=== PATIENT | female | born 1995 | race Caucasian/White ===

== ENCOUNTER → 2017-11-26 11:49 | Outpatient (CLI) | payer BC, SELFPAY ==
--- NOTE | 2017-11-26 11:57 | US_ITS ---
US OB transvaginal: INDICATION: Early OB with cramping ITS.REASON: ABD PAIN, R/O ECTOPIC ORDERING PHYSICIAN: Maddie Haq PATIENT AGE: 22 years TECHNIQUE: ultrasound transvaginal scanning. COMPARISON: No previous relevant studies. FINDINGS: Single early viable intrauterine gestation...Small pole/embryo was identified. Heartbeat confirmed and documented..Heart rate = 130 BPM CRL = 0.55 cm =6 weeks 3 days. Yolk sac = 0.43 cm. AVERAGE ULTRASOUND AGE = 6 weeks 3 days With this the ultrasound SEBAS is 07/19/2018 vs Gestational Age of 6 weeks 6 days based on LMP 10/09/2017. Cervix long thin and closed. Right ovary measures 3.6 x 2.5 x 2.6 cm At the right ovary there is thick walled cyst area, overall measuring 1.75 cm.. May reflect a collapsed cyst. Minimal trace free fluid about the right ovary about the uterus towards/cul-de-sac likely reflecting such as well. Less likely Corpus luteum cyst right ovary. Scattered small follicles otherwise noted) left ovary Left ovary 3.3 x 2 cm x 1.8 cm. Scattered tiny follicles left ovary. IMPRESSION:...... 1. Early 6 week 3 day viable intrauterine gestation. Heart flicker/Cardiac activity identified and documented 2. Right ovary. Probable collapsed cyst with minimal free fluid about the right ovary and towards uterus
== END ==
PROVIDERS: Family Provider Family Medicine; PCP Family Medicine; Visit Provider Family Medicine
DX: R10.9 Unspecified abdominal pain (principal)
CPT/HCPCS: 76817

== ENCOUNTER → 2017-12-17 12:57 | Outpatient (CLI) | payer BC, SELFPAY ==
--- NOTE | 2017-12-17 12:57 | US_ITS ---
US OB transvaginal HISTORY: ITS.REASON: US OB Dates ORDERING PHYSICIAN: Jonathon Solo MD PATIENT AGE: 22 years COMPARISON: [id number] FINDINGS: An intrauterine gestational sac is present with a pole with a crown-rump length of 0.54cm correlating to gestational age of 9w5d. heart tones are present with an FHR of 167 bpm's. Yolk sac is noted. Adnexa: Unremarkable. IMPRESSION: Live intrauterine gestation at 9 weeks 5 days as described above. Estimated due date by ultrasound is 07/17/2018 with adequate progression compared to the previous exam
== END ==
PROVIDERS: Family Provider Family Medicine; PCP Family Medicine; Visit Provider Nurse Practitioner Obstetrics & Gynecology
DX: O26.841 Uterine size-date discrepancy, first trimester (principal)
CPT/HCPCS: 76817

== ENCOUNTER → 2018-01-04 14:35 | Outpatient (CLI) | payer BC, SELFPAY ==
[2018-01-04 15:31] LABS: Basophils % 0.2 % (0.1-2.0); Eosinophils % 0.2 % (0.1-12.0); Hematocrit 40.8 % (37.0-47.0); Hemoglobin 13.7 g/dL (12.2-16.2); Lymphocytes # 2.5 K/mm3 (0.7-4.5); Lymphocytes % 26.6 K/mm3 (10-50); Mean Corpuscular HGB Conc 33.6 g/dL (31.8-35.4); Mean Corpuscular Hemoglobin 30.5 pg (27.0-31.2); Mean Corpuscular Volume 90.9 fl (81-99); Mean Platelet Volume 9.3 fl (7.4-10.4); Monocytes # 0.5 K/mm3 (0.1-1.0); Monocytes % 5.4 % (1.7-9.3); Neutrophils # 6.3 K/mm3 (1.8-7.8); Neutrophils % 67.6 % (37.0-80.0); Platelet Count 214 K/mm3 (142-424); Red Blood Count 4.49 M/mm3 (4.20-5.40); Red Cell Distribution Width 13.3 % (11.5-17.5); White Blood Count 9.3 K/mm3 (4.5-13.0)
[2018-01-06 07:10] LABS: HIV Screen 4th Generation wRfx Non Reactive (Non Reactive); Rubella Antibodies, IgG 1.78 index (Immune >0.99)
[2018-01-06 08:08] LABS: Hepatitis B Surface Antigen Negative (Negative); Hepatitis C Antibody <0.1 s/co ratio (0.0-0.9)
[2018-01-06 15:42] LABS: Rapid Plasma Reagin Ab Titer Non Reactive (NonRea<1:1)
== END ==
PROVIDERS: Visit Provider Nurse Practitioner Obstetrics & Gynecology
DX: Z34.90 Encounter for supervision of normal pregnancy, unspecified, unspecified trimester (principal)
CPT/HCPCS: 36415; 85025; 86592; 86703; 86762; 86850; 87340; 87380; G0432

== ENCOUNTER → 2018-03-11 09:12 | Outpatient (CLI) | payer BC, SELFPAY ==
--- NOTE | 2018-03-11 09:14 | US_ITS ---
US OB /maternal detail: INDICATION: ITS.REASON: US OB Complete ORDERING PHYSICIAN: Jonathon Solo MD PATIENT AGE: 22 years TECHNIQUE: ultrasound transabdominal scanning. COMPARISON: No previous relevant studies. FINDINGS: Single viable intrauterine gestation. Cephalic position. Placenta: Anterior High placenta grade 1. There is h amount fluid. The cervix appears satisfactory. Closed and measuring 4 cm in length. Complete survey performed and was unremarkable on the submitted images as in PACS. No discrete anomalies identified on survey imaging by technologist. Active fetus. Three-vessel cord with satisfactory umbilical cord insertion. 4- chamber heart noted. Survey of brain & ventricles unremarkable. Face and neck survey unremarkable. Diaphragm and chest views unremarkable. Abdomen: Both kidneys noted and unremarkable. Stomach noted and satisfactory. Spine: Survey of the spine satisfactory with no anomalies identified nor imaged. Both arms and legs noted. Amniotic Fluid: Adequate. Maternal adnexa: No significant findings. Measurements: Average ultrasound age 21w5d. Gestational Age 21w6d. Estimated due date by ultrasound age 0407/17/2018. Estimated weight 421 grams. BPD = 22w1d OFD = 22w1d HC = 21w3d AC = 21w1d FL = 21w6d Growth Percentile= 23 percentile Heart Rate = 146 Cerebellum = 21w1d Humerus = 20w6d HC/AC is 1.20 (1.06-1.25). CI is 78% (70-86%). FL/BPD is 70%. FL/AC is 23% (20-24%). IMPRESSION: There is a single live fetus which is in cephalic presentation with an average ultrasound age of 21 weeks and 5 days. heart tones and body motion noted. No obvious anomalies. All parameters correlate. Placenta is anterior and grade 1. Please see above for detail.
== END ==
PROVIDERS: PCP Family Medicine; Visit Provider Nurse Practitioner Obstetrics & Gynecology
DX: Z36.0 Encounter for antenatal screening for chromosomal anomalies (principal)
CPT/HCPCS: 76811

== ENCOUNTER 2018-03-20 22:57 | Outpatient (CLI) | payer BC, SELFPAY ==
[2018-03-20 23:07] VITALS: BMI 28.8
[2018-03-20 23:26] LABS: Microscopic, Urine URINE MICROSCOPIC (MICROSCOPIC)
[2018-03-20 23:31] LABS: Appearance,Urine SL CLOUDY (Clear); Bilirubin,Urine Negative (Negative); Blood, Urine Negative (Negative); Color,Urine YELLOW (Yellow); Glucose,Urine (UA) Negative (Negative); Ketones,Urine 3+ (Negative); Leukocyte Esterase,Urine TRACE (Negative); Nitrate,Urine Negative (Negative); PH,Urine 6.5 (5.0-8.5); Protein,Urine TRACE (Negative); Specific Gravity, Urine >= 1.030 (1.005-1.030); Urobilinogen,Urine 0.2 EU/dl (0.2)
[2018-03-20 23:33] LABS: Amorphous Sediment,Urine Trace /lpf; Mucus,Urine Trace /lpf; Squamous Epithelial Cell,Urine 20-50 #/hpf (0-5)
[2018-03-20 23:49] VITALS: BP 138/72; PULSE 141; RESP 18; TEMP 36.6; O2SAT 97; BMI 28.8
== END 2018-03-21 01:00 | disposition home or self-care (01) ==
LOC: OBOUT 22:58 → OB 23:00
PROVIDERS: PCP Family Medicine; Visit Provider Nurse Practitioner Obstetrics & Gynecology
DX: O21.9 Vomiting of pregnancy, unspecified (principal); Z3A.23 23 weeks gestation of pregnancy
CPT/HCPCS: 81001; 96360; 96367

== ENCOUNTER → 2018-04-22 09:44 | Outpatient (CLI) | payer BC, SELFPAY ==
[2018-04-22 10:17] LABS: Glucose,Fasting 87 mg/dL (60-105)
[2018-04-22 11:36] LABS: Glucose 1 Hour 107 mg/dL (74-106)
== END ==
PROVIDERS: Visit Provider Nurse Practitioner Obstetrics & Gynecology
DX: Z34.90 Encounter for supervision of normal pregnancy, unspecified, unspecified trimester (principal)
CPT/HCPCS: 36415; 82951

== ENCOUNTER → 2018-06-13 17:46 | Outpatient (CLI) | payer BC, SELFPAY | PROVIDERS: Visit Provider Internal Medicine Cardiovascular Disease | DX: Z34.90 Encounter for supervision of normal pregnancy, unspecified, unspecified trimester (principal) | CPT/HCPCS: 86403 ==

== ENCOUNTER 2018-06-16 23:13 | Outpatient (CLI) | payer BC, SELFPAY ==
[2018-06-16 23:25] VITALS: BMI 29.0
[2018-06-16 23:54] LABS: Microscopic, Urine URINE MICROSCOPIC (MICROSCOPIC)
[2018-06-16 23:55] LABS: Appearance,Urine CLEAR (Clear); Bilirubin,Urine Negative (Negative); Blood, Urine Negative (Negative); Color,Urine YELLOW (Yellow); Glucose,Urine (UA) Negative (Negative); Ketones,Urine Negative (Negative); Leukocyte Esterase,Urine 3+ (Negative); Nitrate,Urine Negative (Negative); Protein,Urine Negative (Negative); Specific Gravity, Urine <= 1.005 (1.005-1.030); Urobilinogen,Urine 0.2 EU/dl (0.2)
[2018-06-17 00:03] LABS: Bacteria,Urine 1+ /lpf; Mucus,Urine 1+ /lpf; WBC,Urine 50-100 #/hpf (0-3)
[2018-06-17 00:04] LABS: Fetal Membrane Rupture (Rapid) Negative (Negative)
[2018-06-17 00:13] VITALS: BP 113/69; PULSE 120; RESP 18; TEMP 36.9; O2SAT 96; BMI 29.0
== END 2018-06-17 00:40 | disposition home or self-care (01) ==
LOC: OBOUT 23:16 → OB 23:18
PROVIDERS: PCP Family Medicine; Visit Provider Obstetrics & Gynecology
DX: O60.03 Preterm labor without delivery, third trimester (principal); Z3A.35 35 weeks gestation of pregnancy
CPT/HCPCS: 59025; 81001; 84112; 87086; 87088; 87186

== ENCOUNTER 2018-07-05 00:14 | Inpatient (IN) ==
[2018-07-05 01:07] LABS: Basophils % 0.3 % (0.1-2.0); Eosinophils % 0.2 % (0.1-12.0); Hematocrit 35.1 % (37.0-47.0); Hemoglobin 12.1 g/dL (12.2-16.2); Lymphocytes # 3.6 K/mm3 (0.7-4.5); Lymphocytes % 33.2 % (10-50); Mean Corpuscular HGB Conc 34.5 g/dL (31.8-35.4); Mean Corpuscular Hemoglobin 29.9 pg (27.0-31.2); Mean Corpuscular Volume 86.5 fl (81-99); Mean Platelet Volume 10.9 fl (7.4-10.4); Monocytes # 0.4 K/mm3 (0.1-1.0); Monocytes % 3.6 % (1.7-9.3); Neutrophils # 6.8 K/mm3 (1.8-7.8); Neutrophils % 62.7 % (37.0-80.0); Platelet Count 216 K/mm3 (142-424); Red Blood Count 4.06 M/mm3 (4.20-5.40); Red Cell Distribution Width 12.4 % (11.5-17.5); White Blood Count 10.9 K/mm3 (4.8-10.8)
--- NOTE | 2018-07-05 05:16 | History & Physical Report ---
OB - H&P: HPI Antepartum - History of Present Illness Chief complaint: SROM History of present illness: 23 yo @ 38 wks GA presented with SROM clear fluid. + intermittent contractions but known advanced dilation 4-5cm during final weeks of care. No vaginal bleeding; normal movement. uncomplicated with care Dr. Solo. Admitted for labor, with plan for epidural pain management. tracing reassuring. Anticipate . [facility] History I have reviewed the patient's past medical history: Yes *Have you ever received a pneumonia vaccine?: No *Have you received a flu vaccine this season?: No Other Surgeries: No: Amputation: No Fractures: No - *Social History Smoking Status: Never smoker Alcohol Intake: never Substance Use Type: denies use *Occupational Status:: unemployed *Travel in the last 8 weeks: None Family Hx:: No significant family history Review of Systems - Review of Systems CONSTITUTIONAL: no fever/chills HEENT: no oral lesions PULMONARY: no shortness of breath or difficulty breathing CV: no racing heart, palpitations or chest pain ABD: no abdominal pain, N/V : + SROM SKIN: no new rash or skin lesions EXT: no edema NEURO: no mental status changes PSYCH: no anxiety/depression Meds Home Medications Medication Instructions Recorded Confirmed Type 1 tab PO DAILY 12/08/17 07/01/18 History vitamin,calcium,rmkxwaul-qlty-aygmo acid tablet Ferrous Sulfate 325 mg PO DAILY 03/21/18 07/01/18 History ondansetron 4 mg disintegrating 4 mg PO Q6H PRN 10 Days #30 tab 05/20/18 07/01/18 Rx tablet nitrofurantoin macrocrystal 100 mg 100 mg PO BID 5 Days #10 cap 06/17/18 07/01/18 Rx capsule Allergies Allergy/AdvReac Type Severity Reaction Status Date / Time Penicillins Allergy Unknown -- Verified 07/01/18 09:14 OB - H&P: Exam - Physical Exam Narrative: CONSTITUTIONAL: no acute distress HEENT: mucous membranes moist PULMONARY: breathing unlabored without audible wheezes CV: no tachycardia or visible JVD; normal LE peripheral pulses ABD: soft, NT/ND, no guarding. Gravid uterus. : cervix 6/70/0; grossly ruptured membranes SKIN: no visible rash or lesions HEME: no lymphadenopathy EXT: 1+ edema LEs NEURO: alert/oriented, no altered mental status PSYCH: appropriate mood and demeanor without visible anxiety/depression NST: Basline: 140 Variability: moderate Accelerations: yes Decelerations: no Impression: Reactive, Category 1 OB - Results - Labs Labs: Short CBC 07/05/18 Range/Units 00:50 WBC 10.9 H (4.8-10.8) K/mm3 Hgb 12.1 L (12.2-16.2) g/dL Hct 35.1 L (37.0-47.0) % Plt Count 216 (142-424) K/mm3 OB - A/P Antepartum (1) Spontaneous rupture of amniotic membranes Current visit: Yes Status: Acute (2) 38 weeks gestation of Current visit: Yes Status: Acute - Additional Plan Additional Information:: Admission for labor Continuous monitoring GBS negative Epidural for pain management Anticipate
--- NOTE | 2018-07-05 05:23 | Procedure Note ---
- Delivery Note Delivery Date:: 07/05/18 Delivery Time:: 04:45 Anesthesia Type: Epidural Was labor medically induced?: No Infant delivered prior to 39 weeks?: Yes Justification for early elective delivery:: Active Labor Infant Gender: Male at 1 minute: 9 at 5 minutes: 9 Delivery Procedure:: Spontaneous vaginal delivery of vigorous liveborn over intact perineum. Apgars: 9 & 9 Delivery uncomplicated; nuchal cord, shoulder dystocia with delivery placed in JOSEP immediately after umbilical cord clamped/cut Placenta spontaneously expressed and examined; noted to be complete/intact. Vulva, vagina, and cervix inspected; no lacerations EBL: 300cc All sponge/needle/instrument counts correct at conclusion of procedure Disposition: Mom/baby stable to recovery in LDRP Placental Delivery Description: Spontaneous
--- NOTE | 2018-07-05 08:23 | Progress Note ---
[facility] Anesthesia Checklist - Patient Identification Patient Identification: Arm Band, Verbal (Name & ) - Structural Data Admitted From: Home Planned Operative Procedure/s: Labor epidural Consent for Planned Operative Procedure(s) Verified: Yes Verified Documents: Surgical Consent, History and Physical - Chart Verification Results Verified: CBC - Additional verifications Patient : Yes Anesthesia Reactions: No - Airway Assessment C-Spine Mobility Assessed: Yes TMJ Mobility Assessed: Yes Dentition: Good Dentition - Neurological Assessment Level of Consciousness: Awake Hx Seizures: No Numbness or tingling in extremities: No - Anesthesia Plan Anesthesia Risk discussed: Yes Anesthesia Plan: Verified ASA Class: II Anesthesia Type: Epidural [facility] History I have reviewed the patient's past medical history: Yes Medical History: Reports:: Gastroesophageal Reflux Disease(GERD) *Have you ever received a pneumonia vaccine?: No *Have you received a flu vaccine this season?: No Other Surgeries: No: Amputation: No Fractures: No - *Social History Smoking Status: Never smoker Alcohol Intake: never Substance Use Type: denies use *Occupational Status:: unemployed *Travel in the last 8 weeks: None Family Hx:: No significant family history
[2018-07-05 21:33] VITALS: BP 129/81
[2018-07-06 06:32] LABS: Hematocrit 31.8 % (37.0-47.0); Hemoglobin 10.6 g/dL (12.2-16.2)
--- NOTE | 2018-07-06 08:52 | Progress Note ---
Internal Medicine - PN: Subj *Date: 07/06/18 *Time: 08:51 Interval history: She is doing well this morning. She is eating and drinking and ambulating. Her lochia is normal. We will plan to send her home tomorrow. Exam Vital signs and Labs for Last 24 Hours: Temp Pulse Resp BP 98.1 F 90 17 129/81 07/05/18 19:55 07/05/18 19:55 07/05/18 19:55 07/05/18 19:55 Laboratory Results - last 24 hr 07/06/18 06:03: Hgb 10.6 L, Hct 31.8 L I & O for Last 24 hours: Intake & Output 07/03/18 07/04/18 07/05/18 07/06/18 11:59 11:59 11:59 11:59 Weight 169 lb - Constitutional no acute distress Assessment and Plan (1) Spontaneous rupture of amniotic membranes Current visit: Yes Status: Acute Category: Medical (2) 38 weeks gestation of Current visit: Yes Status: Acute Category: Medical Code(s): Z3A.38 - 38 weeks gestation of - Assessment and plan all Dx Assessment and Plan for all problems:: She is doing very well. We will plan to send her home tomorrow.
--- NOTE | 2018-07-07 09:03 | Discharge Summary ---
General - General Admission date:: 07/05/18 Discharge date: 07/07/18 HPI HPI: She is a 23-year-old 2 now para 2 at 38 and 2 weeks gestational age. She arrived in active labor. Hospital Course Hospital Course: She progressed to full dilation and delivered spontaneously a liveborn male child at 4:48 AM on the morning of July 05, 2018. The baby weighed 6 pounds 15 ounces and had Apgars of 8 at 1 minute and 9 at 5 minutes. She has done well and has remained afebrile throughout her hospitalization. She is eating and drinking and ambulating. She has a positive blood, she is rubella immune and was group A streptococcus negative. She is breast-feeding. She is discharged home to follow-up with me in approximately 2 weeks time. She will continue with her vitamins and iron. She is taking tbcr-owy-xhdjswd analgesics. She was given the usual instructions with respect to limiting her activity, driving and sexual activity. Rhogam Administration: Not Indicated Objective Vital signs: Temp Pulse Resp BP 98.1 F 90 17 129/81 07/05/18 19:55 07/05/18 19:55 07/05/18 19:55 07/05/18 19:55 no acute distress DS: Diagnosis - Discharge Diagnosis (1) Spontaneous rupture of amniotic membranes Status: Acute (2) 38 weeks gestation of Status: Acute Discharge Plan - Patient Discharge Instructions ACTIVITY: No heavy lifting DIET: continue same diet - Follow up Plan Disposition: Home, Self-Group Home Medications: Home Medications Medication Instructions Recorded Confirmed Type Ferrous Sulfate 325 mg PO DAILY 03/21/18 07/05/18 History ondansetron 4 mg disintegrating 4 mg PO Q6H PRN 10 Days #30 tab 05/20/18 07/05/18 Rx tablet Pnv95/Iron Fum/Folic Acid 1 each PO DAILY 07/05/18 07/05/18 History [ Formula Tablet] Prescriptions/Medication Reconciliation: Continue ondansetron 4 mg disintegrating tablet 4 mg PO Q6H PRN 10 Days #30 tab PRN Reason: nausea and vomiting Ferrous Sulfate 325 mg PO DAILY Pnv95/Iron Fum/Folic Acid [ Formula Tablet] 1 each PO DAILY
== END 2018-07-07 11:15 | disposition home or self-care (01) | DRG 807 ==
LOC: OBOUT 00:14 → OB 00:18
PROVIDERS: ADMIT Obstetrics & Gynecology; ATTEND Nurse Practitioner Obstetrics & Gynecology

== ENCOUNTER → 2019-01-03 12:26 | Outpatient (CLI) | payer BC, SELFPAY ==
--- NOTE | 2019-01-03 12:29 | US_ITS ---
PROCEDURE: US TRANSVAGINAL CLINICAL INDICATION: US T/V- f/u on right ovarian cyst Follow-up right ovarian cyst as seen on previous CT scan not available for comparison. COMPARISON: OBTV US OB transvaginal from 12/17/2017 FINDINGS: The uterus has an unremarkable appearance measuring 8.6 x 3.4 by 4.3 cm with a combined endometrial thickness of 3 mm. The left ovary is 2.4 x 1.6 cm containing small follicles with blood flow noted. The right ovary is 3.7 x 2 cm containing small follicles and 1.5 cm cyst. Blood flow is present. No cul-de-sac fluid apparent. IMPRESSION: 1.5 cm right ovarian cyst with small bilateral ovarian follicles and unremarkable appearing uterus Dictated by: Niall Cortez MD 01/03/2019 20:24 Electronically signed by Niall Cortez MD in [place] 01/03/2019 20:24
== END ==
PROVIDERS: PCP Family Medicine; Visit Provider Nurse Practitioner Obstetrics & Gynecology
DX: N83.201 Unspecified ovarian cyst, right side (principal)
CPT/HCPCS: 76830

== ENCOUNTER → 2019-02-06 09:07 | Outpatient (POV) | payer BC, SELFPAY ==
[2019-02-06 10:48] LABS: Basophils % 0.5 % (0.1-2.0); Eosinophils % 0.5 % (0.1-12.0); Hematocrit 45.3 % (37.0-47.0); Hemoglobin 14.6 g/dL (12.2-16.2); Lymphocytes # 2.1 K/mm3 (0.7-4.5); Lymphocytes % 37.3 % (10-50); Mean Corpuscular HGB Conc 32.2 g/dL (31.8-35.4); Mean Corpuscular Hemoglobin 30.6 pg (27.0-31.2); Mean Corpuscular Volume 94.8 fl (81-99); Mean Platelet Volume 10.2 fl (7.4-10.4); Monocytes # 0.4 K/mm3 (0.1-1.0); Monocytes % 6.9 % (1.7-9.3); Neutrophils # 3.1 K/mm3 (1.8-7.8); Neutrophils % 54.8 % (37.0-80.0); Platelet Count 198 K/mm3 (142-424); Red Blood Count 4.78 M/mm3 (4.20-5.40); Red Cell Distribution Width 14.4 % (11.5-17.5); White Blood Count 5.6 K/mm3 (4.8-10.8)
[2019-02-06 10:58] LABS: Alanine Aminotransferase 22 U/L (12-78); Albumin Level 4.7 gm/dL (3.4-5.0); Albumin/Globulin Ratio 1.4 (1.1-1.8); Alkaline Phosphatase 75 U/L (46-116); Anion Gap 16.1 mEq/L (5-15); Aspartate Amino Transferase 13 U/L (15-37); Bilirubin,Total 0.6 mg/dL (0.2-1.0); Blood Urea Nitrogen 10 mg/dL (7-18); Calcium 9.3 mg/dL (8.5-10.1); Carbon Dioxide 24 mmol/L (21.0-32.0); Chloride 104 mmol/L (98-107); Creatinine,Serum 0.66 mg/dL (0.55-1.02); Estimated Glomerular Filt Rate 113 ml/min (>60); GFR (African American) 137 ML/MIN (>60); Globulin 3.3 gm/dl (1.3-3.2); Glucose 97 mg/dL (74-106); Potassium 4.1 mmoL/L (3.5-5.1); Sodium 140 mmol/L (136-145)
[2019-02-07 19:11] LABS: Deamidated Gliadin Abs, IgA 6 units (0-19); Deamidated Gliadin Abs, IgG 3 units (0-19); Endomysial IgA Antibody Negative (Negative); Tissue Transglutaminase IgA Ab <2 U/mL (0-3); Tissue Transglutaminase IgG Ab <2 U/mL (0-5)
[2019-02-08 12:19] LABS: Reticulin IgA Antibody Negative titer (Neg:<1:2.5); Saccharomyces cerevisiae, IgA <20.0 Units (0.0-24.9); Saccharomyces cerevisiae, IgG 39.9 Units (0.0-24.9)
== END ==
PROVIDERS: PCP Family Medicine; Visit Provider Nurse Practitioner Family
DX: R14.0 Abdominal distension (gaseous) (principal); R19.4 Change in bowel habit; K59.00 Constipation, unspecified; K38.8 Other specified diseases of appendix
CPT/HCPCS: 36415; 80053; 83516; 85025; 86255; 86256; 86671

== ENCOUNTER 2019-11-02 14:43 | Emergency (ER) | payer OTHER, SELFPAY ==
[2019-11-02 15:00] VITALS: BP 142/91; BP 146/91; PULSE 120; PULSE 88; RESP 19; TEMP 36.6; TEMP 36.8; O2SAT 98; BMI 22.6
== END 2019-11-02 15:01 | disposition left against medical advice (07) ==
PROVIDERS: Emergency Provider Nurse Practitioner Family; PCP Family Medicine
DX: Z20.828 Contact with and (suspected) exposure to other viral communicable diseases (principal)
CPT/HCPCS: 99201; U0003

== ENCOUNTER 2020-04-22 18:45 | Emergency (ER) | payer BC, SELFPAY ==
[2020-04-22 18:50] VITALS: BP 158/89; PULSE 107; RESP 20; TEMP 36.9; O2SAT 98; BMI 27.6
[2020-04-22 19:15] VITALS: BP 158/89; PULSE 107; RESP 20; TEMP 36.9; O2SAT 98
--- NOTE | 2020-04-22 19:25 | HMH.EDUTC ---
[facility] [place] Clinical Impression: Close exposure to COVID-19 virus Disposition: Home, Self-Care Condition on Discharge: Good Instructions: Preventing the Spread of Coronavirus Discharge Instructions Additional Instructions: Drink plenty of fluids. Take tylenol for pain or fever. Return if you begin to have difficulty breathing. Follow up with your regular doctor. GO TO THE ER FOR ANY WORSENING SYMPTOMS Prescriptions: Ondansetron [Zofran 4mg ODT] 4 mg PO Q8HP PRN #12 tab.rapdis PRN Reason: Nausea Transmission Status: Received by [id number] Referrals: Maddie Haq [Primary Care Provider] - Time of Disposition: 19:31 Medical Decision Making - Medical Records Medical records reviewed: No: I reviewed the patient's medical records. - Guzman Inquiry Pt receiving controlled substance: No Vital Signs: 04/22/20 18:50 04/22/20 19:15 Temperature 98.5 F 98.5 F Temperature Source Oral Pulse Rate 107 H Pulse Rate [Right Brachial] 107 H Respiratory Rate 20 20 Blood Pressure 158/89 H Blood Pressure [Right Arm] 158/89 H Blood Pressure Mean [Right Arm] 112 Blood Pressure Source [Right Arm] Automatic Cuff Blood Pressure Position [Right Arm] Sitting 02 Sat by Pulse Oximetry 98 Oxygen Delivery Method Room Air Orders (Tests/Meds): ORDERS Category Date Time Status Covid-19 Nasal PCR Sendout P&C Routine Lab 04/22/20 19:00 [place] [facility] [place] - General Stated complaint: covid test Time Seen by Provider: 04/22/20 19:25 Mode of Arrival: Ambulatory Source of Information: Patient Limitations: No Limitations Description of Symptoms (Recalled from Triage Doc. by RN): COVID TEST D/T EXPOSURE. DENIES SYMPTOMS HEENT Symptoms (Recalled from RN notes): No Resp Symptoms (Recalled from RN notes): No Skin Symptoms (Recalled from RN notes): No MS Symptoms (Recalled from RN notes): No Functional Status (Recalled from RN notes): WNL - History of Present Illness Provider Complaint: She has been exposed to covid-19 by both her children having it. She denies any symptoms at this time. - Related Data Home Medications Medication Instructions Recorded Confirmed Iron,Carb/Vit C/Vit B12/Folic 65 mg PO DAILY 03/14/19 11/24/19 [Iron 100 Plus Tablet] Naproxen [Naproxen 500mg tab] 500 mg PO BID 03/14/19 11/24/19 cyanocobalamin (vitamin B-12) IM 11/24/19 11/24/19 1,000 mcg/mL injection solution syringe with needle 3 mL 25 gauge See Rx Instructions .ROUTE 11/24/19 x 1 .MEDSUPPLY #1 each Previous Rx's Medication Instructions Recorded bupropion HCl 150 mg 24 hr tablet, 150 mg PO DAILY #30 tab 02/13/20 extended release hydroxyzine HCl 25 mg tablet 25 mg PO TID #90 tab 02/13/20 Ondansetron [Zofran 4mg ODT] 4 mg PO Q8HP PRN #12 tab.rapdis 04/22/20 Allergies Allergy/AdvReac Type Severity Reaction Status Date / Time Penicillins Allergy Unknown -- Verified 11/24/19 11:02 - Worker's Comp Is this a Worker's Comp case?: No [facility] History - Hepatitis A Screen Drug use history?: No High risk sexual behaviors?: No History of sexually transmitted infection?: No Currently employed?: No Childcare worker?: No Do you have indoor plumbing?: Yes Do you have electricity?: Yes Attestation statement:: This patient has been screened for Hepatitis A risk factors. I have reviewed the patient's past medical history: Yes Medical History: Reports:: Gastroesophageal Reflux Disease(GERD) Denies:: Anxiety, Asthma, Cancer, Depression, Diabetes Mellitus Type 1, Diabetes Mellitus Type 2, Hyperlipidemia, Hypertension, Internal Pacemaker, Migraine, MRSA, Seizures Other Medical History: Denies: Anemia Laterality Cases: Bilateral: Tonsillectomy, Other Other Surgeries: Yes: No Previous Surgery. No: , Pacemaker Amputation: No Fractures: No Comment: wisdom teeth - Social History Smoking Status: Never smoker Alcohol Intake: never Substance Use Type: denies use O
[2020-04-24 10:14] LABS: Covid-19 Nasal PCR Sendout P&C POSITIVE
--- NOTE | 2020-04-24 13:11 | PC.NURSE ---
PT NOTIFIED OF POSITIVE COVID RESULTS
== END 2020-04-22 19:40 | disposition home or self-care (01) ==
PROVIDERS: Emergency Provider Nurse Practitioner Family; PCP Family Medicine
DX: Z20.822 Contact with and (suspected) exposure to COVID-19 (principal); K21.9 Gastro-esophageal reflux disease without esophagitis; Z79.899 Other long term (current) drug therapy; Z88.0 Allergy status to penicillin
CPT/HCPCS: 99202; G0463; U0004

== ENCOUNTER → 2020-11-19 10:48 | Outpatient (CLI) | payer BC, SELFPAY ==
--- NOTE | 2020-11-19 10:49 | US_ITS ---
PROCEDURE: US OB >= 14 WEEKS FETUS CLINICAL INDICATION: for dates Anatomy exam COMPARISON: US OBFEMAT US OB /maternal detail from 03/11/2018 FINDINGS: There is a single live fetus in breech presentation. Cervix is closed measuring 4 cm. Placenta is anterior and lateral and grade 1. Measurements: Average ultrasound age 14weeks 3days. Gestational Age 14weeks 3days Estimated due date by ultrasound age 0205/17/2021. Estimated weight 103g BPD = 13weeks 5days OFD = 14weeks 2days HC = 14weeks AC = 14weeks 6days FL = 14weeks 5days Growth Percentile= forty-one% Heart Rate = 147bpm Cerebellum = Humerus = HC/AC is 1.05 CI is 0.66 FL/BPD is 0.72 FL/AC is 0.19 IMPRESSION: Live IUP in breech presentation with an average ultrasound age of 14 weeks 3 days. Estimated due date is 05/17/2021.. Please see above for details. This DOES NOT constitute an anatomy exam which should be performed at 20 weeks. Dictated by: Niall Cortez MD 11/19/2020 14:33 Niall Cortez MD in [place] 11/19/2020 14:33
== END ==
LOC: RAD 10:49
PROVIDERS: PCP Family Medicine; Visit Provider Nurse Practitioner Obstetrics & Gynecology
DX: Z34.90 Encounter for supervision of normal pregnancy, unspecified, unspecified trimester (principal)
CPT/HCPCS: 76805

== ENCOUNTER → 2020-12-30 09:24 | Outpatient (CLI) | payer BC, SELFPAY ==
--- NOTE | 2020-12-30 09:24 | US_ITS ---
PROCEDURE: US OB /MATERNAL DETAIL CLINICAL INDICATION: US OB Complete-20 wk +Anatomy Scan COMPARISON: US US OB >= 14 WEEKS FETUS from 11/19/2020 FINDINGS: Single viable intrauterine gestation. Cephalic position. Placenta: Anteriorplacenta grade 1. There is average amount fluid. The cervix appears satisfactory. Closed and measuring 4 in length. Complete survey performed and was unremarkable on the submitted images as in PACS. No discrete anomalies identified on survey imaging by technologist. Active fetus. Three-vessel cord with satisfactory umbilical cord insertion. 4- chamber heart noted. Survey of brain & ventricles Unremarkable. Face and neck survey unremarkable. Diaphragm and chest views unremarkable. Abdomen: Both kidneys noted and unremarkable. Stomach noted and satisfactory. Spine: Survey of the spine satisfactory with no anomalies identified nor imaged. Both arms and legs noted. Amniotic Fluid: Adequate. Maternal adnexa: No significant findings. Measurements: Average ultrasound age 20weeks 3days. Gestational Age 20weeks 3days Estimated due date by ultrasound age 0205/16/2021. Estimated weight 340g BPD = 20weeks 6days OFD = 20weeks 3days HC = 19weeks 6days AC = 20weeks 2days FL = 20weeks 2days Growth Percentile= 39Percent% Heart Rate = 142bpm Cerebellum = 20weeks 2days Humerus = 20weeks 3days HC/AC is 1.15 CI is 0.81 FL/BPD is 0.67 FL/AC is 0.22 IMPRESSION: Live IUP in cephalic presentation with an average ultrasound age 20 weeks 3 days. No obvious anomalies. Please see above for detail. Dictated by: Niall Cortez MD 12/30/2020 19:02 Niall Cortez MD in [facility] 12/30/2020 19:02
== END ==
LOC: RAD 09:24
PROVIDERS: PCP Family Medicine; Visit Provider Nurse Practitioner Obstetrics & Gynecology
DX: Z36.0 Encounter for antenatal screening for chromosomal anomalies (principal)
CPT/HCPCS: 76811

== ENCOUNTER → 2021-03-03 11:29 | Outpatient (CLI) | payer BC, SELFPAY ==
[2021-03-03 12:09] LABS: Basophils % 0.3 % (0.1-2.0); Eosinophils % 0.2 % (0.1-12.0); Hematocrit 33.1 % (37.0-47.0); Hemoglobin 11.2 g/dL (12.2-16.2); Lymphocytes # 2.3 K/mm3 (0.7-4.5); Lymphocytes % 20.8 % (10-50); Mean Corpuscular HGB Conc 33.8 g/dL (31.8-35.4); Mean Corpuscular Hemoglobin 31.4 pg (27.0-31.2); Mean Corpuscular Volume 92.9 fl (81-99); Mean Platelet Volume 9.4 fl (7.4-10.4); Monocytes # 0.6 K/mm3 (0.1-1.0); Monocytes % 5.3 % (1.7-9.3); Neutrophils # 8.1 K/mm3 (1.8-7.8); Neutrophils % 73.4 % (37.0-80.0); Platelet Count 296 K/mm3 (142-424); Red Blood Count 3.56 M/mm3 (4.20-5.40)
[2021-03-04 08:44] LABS: HIV Screen 4th Generation wRfx Non Reactive (Non Reactive); Hepatitis B Surface Antigen Negative (Negative); Hepatitis C Antibody <0.1 s/co ratio (0.0-0.9); Rubella Antibodies, IgG 1.56 index (Immune >0.99)
[2021-03-04 11:46] LABS: Rapid Plasma Reagin Ab Titer Non Reactive (NonRea<1:1)
== END ==
PROVIDERS: Visit Provider Nurse Practitioner Obstetrics & Gynecology
DX: Z34.90 Encounter for supervision of normal pregnancy, unspecified, unspecified trimester (principal)
CPT/HCPCS: 36415; 85025; 86592; 86703; 86762; 86850; 87340; 87380; G0432

== ENCOUNTER → 2021-04-11 15:28 | Outpatient (CLI) | payer BC, SELFPAY | PROVIDERS: Visit Provider Nurse Practitioner Obstetrics & Gynecology | DX: Z34.90 Encounter for supervision of normal pregnancy, unspecified, unspecified trimester (principal) | CPT/HCPCS: 86403 ==

== ENCOUNTER 2021-04-16 11:04 | Outpatient (CLI) | payer BC, SELFPAY ==
[2021-04-16 11:13] VITALS: BMI 28.3
[2021-04-16 12:02] VITALS: BP 118/69; PULSE 98; RESP 18; TEMP 36.8; O2SAT 98; BMI 28.1
[2021-04-16 12:02] LABS: Microscopic, Urine URINE MICROSCOPIC (MICROSCOPIC)
[2021-04-16 12:08] LABS: Appearance,Urine CLEAR (Clear); Bilirubin,Urine Negative (Negative); Blood, Urine Negative (Negative); Color,Urine YELLOW (Yellow); Glucose,Urine (UA) Negative (Negative); Ketones,Urine Negative (Negative); Leukocyte Esterase,Urine Negative (Negative); Nitrate,Urine Negative (Negative); PH,Urine 6.5 (5.0-8.5); Protein,Urine Negative (Negative)
[2021-04-16 12:24] LABS: Amphetamine/Metha Screen,Urine Negative ng/ml (<1000)
[2021-04-16 12:25] LABS: Barbiturates Screen,Urine Negative ng/ml (<200); Benzodiazepines Screen,Urine Negative ng/ml (<200)
[2021-04-16 12:26] LABS: Cocaine Screen,Urine Negative ng/ml (<300)
[2021-04-16 12:27] LABS: Cannabinoid Screen,Urine Negative ng/ml (<50); Methadone Screen,Urine Negative ng/ml (<300); Squamous Epithelial Cell,Urine Occasional #/hpf (0-5)
[2021-04-16 12:28] LABS: Opiate Screen,Urine Negative ng/ml (<300)
[2021-04-16 12:29] LABS: Phencyclidine Screen,Urine Negative ng/ml (<25)
== END 2021-04-16 14:15 | disposition home or self-care (01) ==
LOC: OBOUT 11:05 → OB 11:10
PROVIDERS: PCP Family Medicine; Visit Provider Nurse Practitioner Obstetrics & Gynecology
DX: O47.03 False labor before 37 completed weeks of gestation, third trimester (principal); Z3A.35 35 weeks gestation of pregnancy
CPT/HCPCS: 59025; 80305; 81001; 96360; 96372

== ENCOUNTER → 2021-04-17 13:49 | Outpatient (CLI) | payer BC, SELFPAY ==
--- NOTE | 2021-04-17 14:14 | PC.NURSE ---
1400 PT HERE FOR REPEAT CELESTONE INJECTION
== END ==
PROVIDERS: PCP Family Medicine; Visit Provider Nurse Practitioner Obstetrics & Gynecology
DX: O60.03 Preterm labor without delivery, third trimester (principal); Z3A.35 35 weeks gestation of pregnancy
CPT/HCPCS: 96372; G0463

== ENCOUNTER 2021-04-20 10:23 | Inpatient (IN) | payer BC, SELFPAY ==
[2021-04-20 09:42] VITALS: BMI 26.2
[2021-04-20 09:50] VITALS: BP 130/80; PULSE 120; RESP 18; TEMP 37.5; O2SAT 97; BMI 26.2
[2021-04-20 10:02] LABS: Microscopic, Urine URINE MICROSCOPIC (MICROSCOPIC)
[2021-04-20 10:11] LABS: Appearance,Urine CLEAR (Clear); Bilirubin,Urine Negative (Negative); Blood, Urine 1+ (Negative); Color,Urine YELLOW (Yellow); Glucose,Urine (UA) Negative (Negative); Ketones,Urine Negative (Negative); Leukocyte Esterase,Urine Negative (Negative); Nitrate,Urine Negative (Negative); Protein,Urine Negative (Negative); Urobilinogen,Urine 0.2 EU/dl (0.2)
[2021-04-20 10:16] LABS: Fetal Membrane Rupture (Rapid) Positive (Negative)
[2021-04-20 10:19] LABS: Barbiturates Screen,Urine Negative ng/ml (<200)
[2021-04-20 10:20] LABS: Benzodiazepines Screen,Urine Negative ng/ml (<200)
[2021-04-20 10:21] LABS: Amphetamine/Metha Screen,Urine Negative ng/ml (<1000); Cocaine Screen,Urine Negative ng/ml (<300)
[2021-04-20 10:22] LABS: Cannabinoid Screen,Urine Negative ng/ml (<50); Methadone Screen,Urine Negative ng/ml (<300)
[2021-04-20 10:23] LABS: Opiate Screen,Urine Negative ng/ml (<300)
[2021-04-20 10:24] LABS: Phencyclidine Screen,Urine Negative ng/ml (<25); WBC,Urine Occasional #/hpf (0-3)
[2021-04-20 10:27] LABS: Coronavirus 19, PCR Not Detected (NotDetected); Influenza A, PCR Not Detected (NotDetected); Influenza B, PCR Not Detected (NotDetected)
[2021-04-20 10:39] LABS: Basophils # 0.2 K/mm3 (0-0.2); Basophils % 1.4 % (0.1-2.0); Eosinophils % 0.3 % (0.1-12.0); Hematocrit 33.9 % (37.0-47.0); Hemoglobin 11.1 g/dL (12.2-16.2); Lymphocytes # 3.4 K/mm3 (0.7-4.5); Lymphocytes % 25.4 % (10-50); Mean Corpuscular HGB Conc 32.8 g/dL (31.8-35.4); Mean Corpuscular Hemoglobin 30.2 pg (27.0-31.2); Mean Platelet Volume 10.3 fl (7.4-10.4); Monocytes # 0.7 K/mm3 (0.1-1.0); Monocytes % 5.2 % (1.7-9.3); Neutrophils # 9.1 K/mm3 (1.8-7.8); Neutrophils % 67.8 % (37.0-80.0); Platelet Count 267 K/mm3 (142-424); Red Blood Count 3.68 M/mm3 (4.20-5.40); Red Cell Distribution Width 13.4 % (11.5-17.5); White Blood Count 13.5 K/mm3 (4.8-10.8)
--- NOTE | 2021-04-20 10:43 | HMH.HP ---
*Admission Date: 04/20/21 *Chief complaint: Active labor: Spontaneous rupture of membranes at 36-2/7 weeks *History of present illness: This 25-year-old 3, para 2, AB 0 white female experience spontaneous rupture of membranes at home this morning at approximately 08 30. She has been robyn off and on for several days. She also has received steroids recently for lung maturation, as she has been [address] Solo's office. She is 36-2/7 weeks of gestation today. Upon arrival in the labor room, she is actively robyn. Her cervix is completely effaced, 5 to 6 cm dilated, with the presenting vertex at 0 station. Her bag of water is grossly ruptured and AmniSure positive. An internal monitor has been placed. The patient is requesting an epidural and this has been called for. [facility] History Medical History: Reports:: Gastroesophageal Reflux Disease(GERD) Denies:: Anxiety, Asthma, Cancer, Depression, Diabetes Mellitus Type 1, Diabetes Mellitus Type 2, Hyperlipidemia, Hypertension, Internal Pacemaker, Migraine, MRSA, Seizures *Have you ever received a pneumonia vaccine?: No *Have you received a flu vaccine this season?: No Other Medical History: Denies: Anemia Laterality Cases: Bilateral: Tonsillectomy, Other Other Surgeries: Yes: No Previous Surgery. No: , Pacemaker Amputation: No Fractures: No - *Social History Smoking Status: Never smoker Alcohol Intake: never Alcohol Intake Frequency:: other Substance Use Type: denies use *Occupational Status:: employed Housing: house Household Members: spouse *Travel in the last 8 weeks: Inside the [facility] - Psychiatric History Expresses thoughts of harming self/others: None Suicide Plan Description: No Plan Pschychiatric History:: Denies:: Anxiety, Depression Family Hx:: Cancer (unknown type), Diabetes Meds Home Medications Medication Instructions Recorded Confirmed Type cyanocobalamin (vitamin B-12) IM 11/24/19 04/11/21 History 1,000 mcg/mL injection solution syringe with needle 3 mL 25 gauge See Rx Instructions .ROUTE 11/24/19 04/11/21 History x 1 .MEDSUPPLY #1 each prenat.vits,indy,lfw-kddn-pinrd 1 tab PO DAILY 11/12/20 04/11/21 History ferrous sulfate 325 mg (65 mg 325 mg PO DAILY #30 tab 02/25/21 04/11/21 Rx iron) tablet ondansetron 4 mg disintegrating 4 mg PO Q8HP PRN #20 tab 03/03/21 04/11/21 Rx tablet ondansetron HCl 4 mg tablet 4 mg PO tab 03/14/21 04/11/21 History Allergies Allergy/AdvReac Type Severity Reaction Status Date / Time Penicillins Allergy Unknown -- Verified 04/11/21 11:54 Exam Vital signs and Labs for Last 24 Hours: Laboratory Results - last 24 hr 04/20/21 09:40: Membrane Rupture Positive A 04/20/21 09:43: Urine Color Yellow, Urine Appearance Clear, Urine pH 7.0, Ur Specific [place] 1.010, Urine Protein Negative, Urine Glucose (UA) Negative, Urine Ketones Negative, Urine Blood 1+, Urine Nitrate Negative, Urine Bilirubin Negative, Urine Urobilinogen 0.2, Ur Leukocyte Esterase Negative, Urine RBC 5-10, Urine WBC Occasional, Ur Squamous Epith Cells 3-5, Urine Bacteria None 04/20/21 09:43: Urine Opiates Screen Negative, Urine Methadone Screen Negative, Ur Barbituates Screen Negative, Ur Phencyclidine Scrn Negative, Ur Amphetamines Screen Negative, U Benzodiazepines Scrn Negative, Urine Cocaine Screen Negative, U Marijuana (THC) Screen Negative 04/20/21 10:07: WBC 13.5 H, RBC 3.68 L, Hgb 11.1 L, Hct 33.9 L, MCV 92.0, MCH 30.2, MCHC 32.8, RDW 13.4, Plt Count 267, MPV 10.3, Neut % (Auto) 67.8, Lymph % (Auto) 25.4, [place] % (Auto) 5.2, Eos % (Auto) 0.3, Baso % (Auto) 1.4, Neut # (Auto) 9.1 H, Lymph # (Auto) 3.4, [place] # (Auto) 0.7, Eos # (Auto) 0.0, Baso # (Auto) 0.2 I & O for Last 24 hours: Intake & Output 04/17/21 04/18/21 04/19/21 04/20/21 11:59 11:59 11:59 11:59 Weight 152 lb 9 oz - Constitutional no acute distress - *Routine HEENT Exam Head: Present: normocephalic Eye: Present
--- NOTE | 2021-04-20 11:44 | P.PN_ITS ---
[facility] Anesthesia Checklist - Patient Identification Patient Identification: Arm Band - Structural Data Admitted From: Inpatient Planned Operative Procedure/s: labor epidural Consent for Planned Operative Procedure(s) Verified: Yes Verified Documents: Surgical Consent, History and Physical - NPO Status Verified Time NPO: 00:00 - Additional verifications Anesthesia Reactions: No - Airway Assessment C-Spine Mobility Assessed: Yes TMJ Mobility Assessed: Yes Dentition: Good Dentition - Neurological Assessment Level of Consciousness: Awake, Alert - Anesthesia Plan Anesthesia Risk discussed: Yes Anesthesia Plan: Verified ASA Class: II Anesthesia Type: Epidural [facility] History I have reviewed the patient's past medical history: Yes Medical History: Reports:: Gastroesophageal Reflux Disease(GERD) Denies:: Anxiety, Asthma, Cancer, Depression, Diabetes Mellitus Type 1, Diabetes Mellitus Type 2, Hyperlipidemia, Hypertension, Internal Pacemaker, Migraine, MRSA, Seizures *Have you ever received a pneumonia vaccine?: No *Have you received a flu vaccine this season?: No Other Medical History: Denies: Anemia Anesthesia experience/problems:: nac Laterality Cases: Bilateral: Tonsillectomy, Other Other Surgeries: Yes: No Previous Surgery. No: , Pacemaker Amputation: No Fractures: No - *Social History Smoking Status: Never smoker Alcohol Intake: never Alcohol Intake Frequency:: other Substance Use Type: denies use *Occupational Status:: employed Housing: house Household Members: spouse *Travel in the last 8 weeks: Inside the [place] - Psychiatric History Expresses thoughts of harming self/others: None Suicide Plan Description: No Plan Pschychiatric History:: Denies:: Anxiety, Depression Family Hx:: Cancer (unknown type), Diabetes
--- NOTE | 2021-04-20 13:50 | HMH.PROBDLV ---
Events: Labor < 37 Weeks Intrapartal events: None Induction method: none Delivery augmentation: pitocin Route of delivery: Episiotomy description: None Laceration description: None Estimated blood loss (mL): 350 Anesthesia type: Epidural Disposition: floor Complications: none Narrative: This 25-year-old 3, now para 3, Ab0 white female was admitted at 36-2/7 weeks with spontaneous rupture of membranes at home at approximately 08 30 today. Been noted to be [address] Solo's office and identified is at risk for delivery. Therefore, she would a course of steroids for lung maturity this past week. Upon arrival to labor and delivery she was robyn irregularly and was 5 to 6 cm dilated with obvious rupture of membranes and clear fluid. The cervix was completely effaced and the presenting vertex was at 0 station. She underwent a labor epidural, which worked well, and was augmented with intravenous Pitocin. She went steadily to completion and delivered spontaneously, without an episiotomy, at 1335. There was no nuchal cord. The baby's nasal and oropharynx obstruction, and the baby cried spontaneously on the perineum, as it was delivered. The cord was clamped and cut, 3 vessels were noted to be within the cord, and cord blood was obtained. The baby was handed into the arms of the attending RN, and evaluated by slip filler Dr. Asencio, who assigned Apgars of 8 at 1 minute and 8 at 5 minutes to this male infant (weight in length pending). The placenta delivered spontaneously, intact. Total time in labor was 5 hours 7 minutes. The uterus was inspected and found to be clean, and was involuting well, with IV Pitocin running. There were no lacerations. The rectovaginal septum was intact at the close of the procedure. The patient tolerated the procedure well, and was recovered in excellent condition. Estimated blood loss was 350 cc. The patient's blood type is Rh+ and rubella titer immune. She plans to breast-feed.
--- NOTE | 2021-04-20 14:43 | HMH.PHAINT ---
MEDICATION RECONCILIATION COMPLETED ON PATIENT USING EXTERNAL FILL HISTORY FROM PHARMACY. -YAKELIN CORREIA, PHYLLISD
[2021-04-20 19:50] VITALS: BP 132/74; PULSE 85; RESP 18; TEMP 36.5; O2SAT 96
[2021-04-21 04:22] VITALS: BP 124/73; PULSE 75; RESP 17; TEMP 36.7; O2SAT 97
[2021-04-21 07:41] LABS: Hematocrit 33.6 % (37.0-47.0); Hemoglobin 10.9 g/dL (12.2-16.2)
[2021-04-21 08:56] VITALS: BP 119/75; PULSE 110; RESP 17; TEMP 36.7; O2SAT 95
--- NOTE | 2021-04-21 11:22 | HMH.ACPN2 ---
Internal Medicine - PN: Subj *Date: 04/21/21 *Time: 11:22 Interval history: She continues to do well. She is eating and drinking and ambulating. Her lochia is normal. She is breast-feeding. Exam Vital signs and Labs for Last 24 Hours: Temp Pulse Resp BP Pulse Ox 98.0 F 110 H 17 119/75 95 04/21/21 08:56 04/21/21 08:56 04/21/21 08:56 04/21/21 08:56 04/21/21 08:56 Laboratory Results - last 24 hr 04/20/21 10:07: Blood Type A Positive, Antibody Screen Negative 04/21/21 07:15: Hgb 10.9 L, Hct 33.6 L I & O for Last 24 hours: Intake & Output 04/18/21 04/19/21 04/20/21 04/21/21 11:59 11:59 11:59 11:59 Output Total 400 / 400 Balance -400 / -400 Weight 152 lb 14.4 oz - Constitutional no acute distress - *Routine HEENT Exam Head: Present: normocephalic Eye: Present: EOMI, PERRL ENT: Present: mucous membranes moist Assessment and Plan (1) Normal delivery Status: Acute Category: Medical Code(s): O80 - Encounter for full-term uncomplicated delivery (2) premature rupture of membranes (PPROM) delivered, current hospitalization Status: Acute Category: Medical Code(s): O42.919 - premature rupture of membranes, unspecified as to length of time between rupture and onset of labor, unspecified trimester - Assessment and plan all Dx Assessment and Plan for all problems:: She is doing well. She is breast-feeding. Baby seems to be doing well. We will see how she does over the next 24 hours. If she is doing well and if the baby is doing well we will plan to send her home tomorrow.
[2021-04-21 21:52] VITALS: BP 116/77; PULSE 109; RESP 18; TEMP 36.8; O2SAT 97
[2021-04-22 03:54] VITALS: BP 107/75; PULSE 94; RESP 17; TEMP 36.8; O2SAT 99
--- NOTE | 2021-04-22 08:42 | ECG_ITS ---
APPROVED REPORT Exam: Resting ECG HR:147 bpm ECG Measurements Heart Rate 147 AXES MI 118 P 52 QRSd 74 QRS 35 QT 253 T 12 QTc 337 Conclusion SINUS TACHYCARDIA WITH SHORT MI INTERVAL, POSSIBLE ATRIAL FLUTTER MINIMAL ST DEPRESSION [0.025+ mV ST DEPRESSION] ABNORMAL RHYTHM ECG UNCONFIRMED REPORT Electronically signed by : Dao Asencio MD 04/22/2021 12:11:23
--- NOTE | 2021-04-22 12:36 | CA_ITS ---
APPROVED REPORT EXAM: Comprehensive 2D, Doppler, and color-flow Echocardiogram Director Clinical Research: China Cerna, RT(R) Ht: 5 ft 4 in Wt: 162lbs BSA: 1.79 BP: 107/75 mmHg Indications: tachycardia post x 48 hours. Patient had vaginal delivery 04/20/21. She is tachycardic throughout echo exam. She denies CP or SOB. 2D Dimensions LVOT 1.89 cm (M/F) 1.5-2.5 LA Volume 20.30 mL LA Volume Index 11.34 mL/m2 (M/F) 16-34 M-Mode Dimensions RVDd 1.69 cm (0.9-2.6) LA Diam 2.24 cm (1.9-4.0) LVDd 4.01 cm (3.5-5.7) Ao Diam 2.30 cm (2.0-3.7) LVDs 3.17 cm (3.5-5.7) IVSd 0.67 cm (0.6-1.1) PWd 0.81 cm (0.6-1.1) EF (Teich) 43.20% FS 20.90% EDV (Teich) 70.40 mL ESV (Teich) 40.00 mL LV Diastology E Decel Time 80.00 (160-240 msec) E/A Ratio 1.6 MED E' 6.20 (< 7 cm/sec) E'/MED E' Ratio 19.50 (>14) LAT E' 6.70 (<10 cm/sec) E/LAT E' Ratio 18.04 (>14) Mitral Valve MV E Max Abraham. 121.00 (40-130 cm/s) MV A Velocity 77.00 (40-130 cm/s) E/A Ratio 1.57 MV Decel. Time 80.00 (160-240 ms) MV PHT 23.00 ms Tricuspid Valve TR P. Velocity 227.00 cm/s RAP Estimate 10.00 mmHg RVSP 30.50 mmHg Left Ventricle Left atrium is normal size, left ventricle is normal size, there is hyperdynamic left ventricular systolic function, visually estimated ejection fraction 55% with no regional wall motion abnormality. Diastolic parameters are within normal range. Right Ventricle Right atrium and right ventricle are normal size and contractility. Aortic Valve Aortic valve is grossly normal. There is no aortic stenosis or aortic insufficiency. Mitral Valve Mitral valve grossly normal, there is trace mitral regurgitation. Tricuspid Valve Tricuspid valve grossly normal, there is trace tricuspid regurgitation. Pulmonic Valve Pulmonic valve is grossly normal. Great Vessels Aortic root is normal size. Inferior vena cava is normal size with normal inspiratory collapse. Pericardium No significant pericardial effusion noted. Conclusion 1. Normal left ventricular size preserved left ventricular systolic function, visually estimated ejection fraction 55% with no regional wall motion abnormality, diastolic parameters are within normal range. 2. Trace mitral and tricuspid regurgitation. 3. No significant pericardial effusion. 4. Inferior vena cava is normal size with normal inspiratory collapse. Electronically signed by : Weston Andersen MD 04/22/2021 20:07:53
--- NOTE | 2021-04-22 12:37 | HMH.CNCARD ---
History of Present Illness Consult date: 04/22/21 Requesting physician: Jonathon Solo Chief complaint: tachycardia History of present illness: This is a 25-year-old white female who came into the hospital and had a vaginal delivery on April 20, 2021. This morning the patient was found to be tachycardic with a heart rate in the 140s. Her heart rate remained elevated through most of the morning. When she stands up her heart rate has been as high as 180 by pulse oximetry monitors. While at rest currently her heart rate is around 115 bpm. She denies any chest pain or pressure. She denies any shortness of breath or edema. She denies any palpitations or racing of the heart. She denies any fever, chills, nausea, vomiting, diarrhea, PND or orthopnea. [facility] History I have reviewed the patient's past medical history: Yes Medical History: Reports:: Gastroesophageal Reflux Disease(GERD) Denies:: Anxiety, Asthma, Cancer, Depression, Diabetes Mellitus Type 1, Diabetes Mellitus Type 2, Hyperlipidemia, Hypertension, Internal Pacemaker, Migraine, MRSA, Seizures *Have you ever received a pneumonia vaccine?: No *Have you received a flu vaccine this season?: No Other Medical History: Denies: Anemia Anesthesia experience/problems:: nac Laterality Cases: Bilateral: Tonsillectomy, Other Other Surgeries: Yes: No Previous Surgery. No: , Pacemaker Amputation: No Fractures: No - *Social History Smoking Status: Never smoker Alcohol Intake: never Alcohol Intake Frequency:: other Substance Use Type: denies use *Occupational Status:: employed Housing: house Household Members: spouse *Travel in the last 8 weeks: Inside the [facility] - Psychiatric History Expresses thoughts of harming self/others: None Suicide Plan Description: No Plan Pschychiatric History:: Denies:: Anxiety, Depression Family Hx:: Cancer (unknown type), Diabetes, Other (MVP in mother and father, and paternal grandmother) Para: 2 Meds Home Medications Medication Instructions Recorded Confirmed Type cyanocobalamin (vitamin B-12) 1,000 mcg IM QOW 11/24/19 04/20/21 History 1,000 mcg/mL injection solution prenat.vits,indy,aur-bini-rncyy 1 tab PO DAILY 11/12/20 04/20/21 History ondansetron HCl 4 mg tablet 4 mg PO TIDP PRN tab 03/14/21 04/20/21 History Ferrous Sulfate 325 mg PO DAILY 04/20/21 04/20/21 History Allergies Allergy/AdvReac Type Severity Reaction Status Date / Time Penicillins Allergy Unknown -- Verified 04/11/21 11:54 Exam Vital signs and Labs for Last 24 Hours: Temp Pulse Resp BP Pulse Ox 98.2 F 94 H 17 107/75 L 99 04/22/21 03:54 04/22/21 03:54 04/22/21 03:54 04/22/21 03:54 04/22/21 03:54 I & O for Last 24 hours: Intake & Output 04/19/21 04/20/21 04/21/21 04/22/21 23:59 23:59 23:59 23:59 Output Total 400 / 400 Balance -400 / -400 Weight 152 lb 14.4 oz Narrative: EKG is sinus tachycardia with a rate of 147 - Constitutional no acute distress, average body habitus - *Routine HEENT Exam Head: Present: normocephalic, atraumatic Eye: Present: EOMI, PERRL ENT: Present: mucous membranes moist - *Routine Neck Exam Present: supple, full ROM, normal carotid upstroke. Absent: JVD, carotid bruit, lymphadenopathy - *Routine Respiratory Exam Present: CTA bilaterally - *Routine Cardiovascular Exam Present: RRR - *Routine Abdominal Exam Present: soft, normoactive bowel sounds. Absent: tenderness, distended - *Routine Extremities Exam Present: full ROM, pulses intact, normal capillary refill. Absent: cyanosis, clubbing, edema - *Routine Skin Exam Present: intact, warm. Absent: erythema, rash - *Routine Neurological Exam Present: alert, oriented X3, CN II-XII intact. Absent: sensory deficit, motor deficit - Routine Psychiatric Exam Present: normal affect, normal thought process Review of Systems - Review of Systems Review of systems:: pertinent systems reviewed and negative unless document
[2021-04-22 13:03] LABS: Basophils # 0.2 K/mm3 (0-0.2); Basophils % 1.2 % (0.1-2.0); Eosinophils % 0.3 % (0.1-12.0); Hematocrit 38.5 % (37.0-47.0); Hemoglobin 12.2 g/dL (12.2-16.2); Lymphocytes # 1.4 K/mm3 (0.7-4.5); Lymphocytes % 10.7 % (10-50); Mean Corpuscular HGB Conc 31.6 g/dL (31.8-35.4); Mean Corpuscular Hemoglobin 29.5 pg (27.0-31.2); Mean Corpuscular Volume 93.3 fl (81-99); Monocytes # 0.7 K/mm3 (0.1-1.0); Monocytes % 5.1 % (1.7-9.3); Neutrophils # 10.8 K/mm3 (1.8-7.8); Neutrophils % 82.7 % (37.0-80.0); Platelet Count 285 K/mm3 (142-424); Red Blood Count 4.12 M/mm3 (4.20-5.40); Red Cell Distribution Width 13.3 % (11.5-17.5)
[2021-04-22 13:43] LABS: Alanine Aminotransferase 207 U/L (12-78); Albumin Level 4.1 g/dl (3.5-5.0); Alkaline Phosphatase 174 U/L (38-126); Anion Gap 12.5 mEq/L (5-15); Aspartate Amino Transferase 94 U/L (14-36); Bilirubin,Direct 0.1 mg/dl (0.0-0.4); Bilirubin,Indirect 0.3 mg/dL (0.0-0.9); Bilirubin,Total 0.4 mg/dl (0.2-1.3); Bilirubin,Unconjugated 0.3 mg/dL (0.0-1.1); Blood Urea Nitrogen 6 mg/dl (7-17); Carbon Dioxide 24 mmol/L (22.0-30.0); Chloride 103 mmol/L (98-107); Creatinine Clearance Estimated 192 mL/min (50-200); Estimated Glomerular Filt Rate 153 ml/min (>60); GFR (African American) 185 ML/MIN (>60); Glucose 98 mg/dl (74-100); Potassium 3.5 mmoL/L (3.5-5.1); Sodium 136 mmol/L (136-145); Total Protein,Serum 7.6 g/dl (6.3-8.2)
[2021-04-22 14:14] LABS: Thyroid Stimulating Hormone 1.36 uIU/mL (0.465-4.68)
[2021-04-22 14:41] LABS: Free T4 (Free Thyroxine) 1.02 ng/dl (0.78-2.19)
[2021-04-22 20:00] VITALS: PULSE 140
[2021-04-22 20:15] VITALS: BP 122/76; PULSE 146; RESP 20; TEMP 36.8; O2SAT 98
--- NOTE | 2021-04-22 21:32 | PC.NURSE ---
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
[2021-04-23] VITALS: PULSE 120
[2021-04-23 04:00] VITALS: PULSE 110
[2021-04-23 08:00] VITALS: BP 118/79; PULSE 108; RESP 18; TEMP 36.5; O2SAT 99
--- NOTE | 2021-04-23 10:36 | HMH.PNCARD ---
Subjective Date: 04/23/21 Time: 10:00 Interval history: This is a 25 and white female who came into the hospital and had a vaginal delivery on April 20, 2021. Cardiology has been consulted because she was tachycardic with heart rate in the 140s. At times when she was standing up her heart rate as high as 180 by pulse oximetry. She has been on psychologist private practice and she has had tachycardia overnight. The patient denies any symptoms. She denies racing of the heart or feeling her heart beating fast. She denies chest pain or pressure. She denies shortness of breath or edema. She denies any fever, chills, nausea, vomiting, diarrhea, PND or orthopnea. Exam Vital signs and Labs for Last 24 Hours: Temp Pulse Resp BP Pulse Ox 97.7 F 108 H 18 118/79 99 04/23/21 08:00 04/23/21 08:00 04/23/21 08:00 04/23/21 08:00 04/23/21 08:00 Laboratory Results - last 24 hr 04/22/21 12:49: WBC 13.0 H, RBC 4.12 L, Hgb 12.2, Hct 38.5, MCV 93.3, MCH 29.5, MCHC 31.6 L, RDW 13.3, Plt Count 285, MPV 10.0, Neut % (Auto) 82.7 H, Lymph % (Auto) 10.7, Garden % (Auto) 5.1, Eos % (Auto) 0.3, Baso % (Auto) 1.2, Neut # (Auto) 10.8 H, Lymph # (Auto) 1.4, Garden # (Auto) 0.7, Eos # (Auto) 0.0, Baso # (Auto) 0.2 04/22/21 12:49: Sodium 136, Potassium 3.5, Chloride 103, Carbon Dioxide 24, Anion Gap 12.5, BUN 6 L, Creatinine 0.50 L, Estimated Creat Clear 192, Estimated GFR 153, Est GFR ( Amer) 185, Glucose 98, Calcium 10.0, Total Bilirubin 0.4, Direct Bilirubin 0.1, Conjugated Bilirubin 0.0, Indirect Bilirubin 0.3, Unconjugated Bilirubin 0.3, AST 94 H, ALT 207 H, Alkaline Phosphatase 174 H, Total Protein 7.6, Albumin 4.1, TSH 1.36 04/22/21 12:49: Free T4 1.02 I & O for Last 24 hours: Intake & Output 04/20/21 04/21/21 04/22/21 04/23/21 23:59 23:59 23:59 23:59 Output Total 400 / 400 Balance -400 / -400 Weight 152 lb 14.4 oz Narrative: Monitor strip shows sinus rhythm with a rate of 108. Echo shows: 1. Normal left ventricular size preserved left ventricular systolic function, visually estimated ejection fraction 55% with no regional wall motion abnormality, diastolic parameters are within normal range. 2. Trace mitral and tricuspid regurgitation. 3. No significant pericardial effusion. 4. Inferior vena cava is normal size with normal inspiratory collapse. - Constitutional no acute distress, average body habitus - *Routine HEENT Exam Head: Present: normocephalic, atraumatic Eye: Present: EOMI, PERRL ENT: Present: mucous membranes moist - *Routine Neck Exam Present: supple, full ROM, normal carotid upstroke. Absent: JVD, carotid bruit, lymphadenopathy - *Routine Respiratory Exam Present: CTA bilaterally - *Routine Cardiovascular Exam Present: RRR, Normal S1, Normal S2. Absent: murmur - *Routine Abdominal Exam Present: soft, normoactive bowel sounds. Absent: tenderness, distended - *Routine Extremities Exam Present: full ROM, pulses intact, normal capillary refill. Absent: cyanosis, clubbing, edema - *Routine Skin Exam Present: intact, warm. Absent: erythema, rash - *Routine Neurological Exam Present: alert, oriented X3, CN II-XII intact. Absent: sensory deficit, motor deficit Progress Note: A&P (1) Sinus tachycardia Status: Acute (2) Normal delivery Status: Acute (3) premature rupture of membranes (PPROM) delivered, current hospitalization Status: Acute Assessment and Plan for All Diagnoses:: Plan: 1. The patient was admitted and had a vaginal delivery in April 20, 2021. Following her vaginal delivery the patient has had some sinus tachycardia. She remains a little bit tachycardic this morning with a heart rate around 108. She remains asymptomatic. 2. Her echocardiogram showed a normal ejection fraction and no significant valve disease. 3. Her blood pressures well controlled. 4. Her LDL goal is less than 100. 5. Her liver enzymes were slightly elevated. Will repeat thi
[2021-04-23 12:00] VITALS: BP 110/79; PULSE 107; RESP 18; TEMP 36.6; O2SAT 98
--- NOTE | 2021-04-23 13:58 | HMH.OBDCSM ---
General - General Admission date:: 04/20/21 Discharge date: 04/23/21 HPI - History of Present Illness History of present illness: She is a 25-year-old 3 para 2 who came in with ruptured membranes at 36 weeks. Hospital Course Hospital Course: She came in with ruptured membranes and was found to be 5 to 6 cm dilated. She was 36 weeks gestational age. She subsequently progressed to full dilation and delivered spontaneously a liveborn male child at 1:35 PM in the afternoon of April 20, 2021. She initially did well but it was noted that she had tachycardia. Her heart rate was in the 140s and when she stood up went into the 180s. She was seen by cardiology and was monitored for 24 hours. She had an echocardiogram that was essentially normal with some mild TR and MR regurgitation. Her heart rates have settled into the 100 210 range. She will be discharged home to follow-up with me in 2 weeks time. She will continue to follow with cardiology. She will continue with her vitamins and iron. She was given the usual instructions with respect to limiting her activity, driving and sexual activity. She has a positive blood, she is rubella immune and was group B streptococcus positive. She did receive IV antibiotics while in labor. She has remained afebrile with her hospitalization. Her condition on discharge is stable and improved. Rhogam Administration: Not Indicated Objective Vital signs: Temp Pulse Resp BP Pulse Ox 97.9 F 107 H 18 110/79 98 04/23/21 12:00 04/23/21 12:00 04/23/21 12:00 04/23/21 12:00 04/23/21 12:00 no acute distress - *Routine HEENT Exam Head: Present: normocephalic Eye: Present: EOMI, PERRL ENT: Present: mucous membranes moist Results Labs on day of discharge: Labs from last 24 hours 04/22/21 04/22/21 12:49 12:49 TSH 1.36 Free T4 1.02 DS: Diagnosis - Discharge Diagnosis (1) Sinus tachycardia Status: Acute (2) Normal delivery Status: Acute (3) premature rupture of membranes (PPROM) delivered, current hospitalization Status: Acute Discharge Plan - Patient Discharge Instructions ACTIVITY: No heavy lifting DIET: continue same diet Additional Instructions: No heavy lifting/strenuous activity for 2 weeks. Nothing in the vagina for 6 weeks. Follow up with as scheduled. Patient Instructions: Hemorrhage, DI for Labor and Delivery, Vaginal , DI for Depression, DI for Pre-eclampsia, [facility] Post Discharge Instructions, Preventing the Spread of Coronavirus Discharge Instructions - Follow up Plan Follow up with: Jonathon Solo MD [Staff Physician] - Disposition: Home, Self-Care Condition at discharge:: Stable Home Medications: Home Medications Medication Instructions Recorded Confirmed Type cyanocobalamin (vitamin B-12) 1,000 mcg IM QOW 11/24/19 04/20/21 History 1,000 mcg/mL injection solution prenat.vits,indy,lei-lwsi-pxmen 1 tab PO DAILY 11/12/20 04/20/21 History ondansetron HCl 4 mg tablet 4 mg PO TIDP PRN tab 03/14/21 04/20/21 History Ferrous Sulfate 325 mg PO DAILY 04/20/21 04/20/21 History Prescriptions/Medication Reconciliation: Continued cyanocobalamin (vitamin B-12) 1,000 mcg/mL injection solution 1,000 mcg IM QOW ondansetron HCl 4 mg tablet 4 mg PO TIDP PRN tab PRN Reason: Nausea And Vomiting prenat.vits,indy,gwo-ijij-tllbw 1 tab PO DAILY Ferrous Sulfate 325 mg PO DAILY - Problem Reconciliation Problems Reviewed?: Yes
== END 2021-04-23 15:19 | disposition home or self-care (01) | DRG 805 ==
LOC: OBOUT 10:25 → OB 10:25
PROVIDERS: Nurse Practitioner Family; Admitting Provider Obstetrics & Gynecology; PCP Family Medicine; Visit Provider Nurse Practitioner Obstetrics & Gynecology
DX: O42.013 Preterm premature rupture of membranes, onset of labor within 24 hours of rupture, third trimester (principal); O60.14X0 Preterm labor third trimester with preterm delivery third trimester, not applicable or unspecified; Z37.0 Single live birth; O99.43 Diseases of the circulatory system complicating the puerperium; Z3A.36 36 weeks gestation of pregnancy; R00.0 Tachycardia, unspecified
CPT/HCPCS: 59409; 36415; 59025; 80048; 80076; 80305; 81001; 84112; 84439; 84443; 85014; 85018; 85025; 86850; 93005; 93306; 94761; C1758; C9803; G0283; J2405; U0003; U0005

== ENCOUNTER 2022-12-24 17:12 | Emergency (ER) | payer BC, SELFPAY ==
[2022-12-24 17:13] VITALS: BP 172/91; PULSE 91; RESP 18; TEMP 37.1; O2SAT 99; BMI 33.3
--- NOTE | 2022-12-24 17:30 | EXP.UTC ---
Discharge Plan Disposition Patient Disposition: Home, Self-Care Condition: Good Prescriptions Prescriptions: New prednisone 10 mg tablet 10 mg PO BID 3 Days Qty: 6 0RF blgciumcedwfikl-[id number] [Bromfed DM] 2-30-10 mg/5 mL Syrup 5 ml PO Q6H PRN (Reason: Cough) Qty: 240 0RF cefdinir 300 mg capsule 300 mg PO BID Qty: 20 0RF No Action cyanocobalamin (vitamin B-12) 1,000 mcg/mL solution 100 mcg SQ .every other week ferrous sulfate 325 mg (65 mg iron) tablet 325 mg PO DAILY Referrals Follow up/Referrals: Maddie Haq [Primary Care Provider] - See instructions Activity Restrictions/Add. Instructions Additional Instructions/Restrictions: Drink plenty of fluids. Take tylenol or ibuprofen for pain or fever. Take the medications as directed. Follow up with your regular doctor. GO TO THE ER FOR ANY WORSENING SYMPTOMS Clinical Impressions Clinical Impression: Pharyngitis, Exposure to strep throat Stand Alone Forms Stand Alone Forms: Work/School Release Instructions Patient Instructions: Strep Throat, DI for Strep Throat Discharge ED Provider: Mick Portillo [facility] General Stated complaint: sore throat, exposed to strep Time Seen by Provider: 12/24/22 17:30 History of Present Illness Provider Complaint: She states that she has had worsening sore throat, chills, and fever for the past 2 days. She has been exposed to strep throat in her home. Related Data Home Medications Medication Instructions Recorded Confirmed cyanocobalamin (vitamin B-12) 100 mcg SQ .every other week 08/05/22 12/24/22 1,000 mcg/mL injection solution Supplement ferrous sulfate 325 mg (65 mg 325 mg PO DAILY Supplement 08/05/22 12/24/22 iron) tablet Previous Rx's Medication Instructions Recorded bzaytdsuuhsaild-kielvskisvckigj-FX 5 ml PO Q6H PRN Cough #240 mL 12/24/22 2 mg-30 mg-10 mg/5 mL oral syrup (Bromfed DM) cefdinir 300 mg capsule 300 mg PO BID #20 caps 12/24/22 prednisone 10 mg tablet 10 mg PO BID 3 days #6 tabs 12/24/22 Allergies Allergy/AdvReac Type Severity Reaction Status Date / Time Penicillins Allergy Unknown -- Verified 12/24/22 17:32 [facility] Disclaimer: The information contained in this section may have been updated after the patient was seen, as this information can be updated by other users. Surgical History Hx of tonsillectomy Hx of wisdom tooth extraction Social History Smoking Status: Never smoker second hand exposure: No alcohol intake: current substance use type: denies use current occupational status: employed Travel in the last 8 weeks: None household members: spouse housing: house current occupation: [employer] current occupational exposures/hazards: No caffeine: No ROS Obtained: Yes All systems reviewed & no additional complaints except as documented Constitutional Constitutional: Reports chills and Reports fever(s) Eyes Eyes: Denies eye discharge ENT Ears, Nose, Mouth, and Throat: Reports as per HPI Cardiovascular Cardiovascular: Denies chest pain Respiratory Respiratory: Denies chest congestion and Reports cough Gastrointestinal Gastrointestingal: Reports nausea; Denies abdominal pain, constipation, cramping, diarrhea or vomiting Musculoskeletal Musculoskeletal: Denies arthralgias Integumentary/Breasts Skin/Breast: Denies rash Neurologic Neurologic: Denies paresthesias Physical Exam General General appearance: alert and in no apparent distress Head Head exam: atraumatic, normocephalic and normal inspection Eye Eye exam: Present normal appearance, PERRL and EOMI ENT ENT exam: Present mucous membranes moist and normal external ear exam Expanded ENT Exam TM/Canal exam: Bilateral TM: erythema and bulging Nose exam: Absent sinus tenderness Mouth exam: Present normal external inspection; A
[2022-12-24 17:34] LABS: UTC Strep Screen (Rapid) Negative (Negative)
[2022-12-24 17:43] VITALS: BP 172/91; PULSE 91; RESP 18; TEMP 37.1; O2SAT 99
== END 2022-12-24 17:43 | disposition home or self-care (01) ==
PROVIDERS: Emergency Provider Nurse Practitioner Family; PCP Family Medicine
DX: J02.0 Streptococcal pharyngitis (principal)
CPT/HCPCS: 87880; 99212; 99214; G0463

== ENCOUNTER 2023-06-12 09:11 | Emergency (ER) | payer BC, SELFPAY ==
[2023-06-12 09:20] VITALS: BP 131/85; PULSE 90; RESP 17; TEMP 36.6; O2SAT 98; BMI 32.4
--- NOTE | 2023-06-12 09:43 | EXP.UTC ---
Discharge Plan Disposition Patient Disposition: Home, Self-Care Condition: Good Prescriptions Prescriptions: New cephalexin 500 mg tablet 500 mg PO BID 10 Days Qty: 20 0RF fluticasone propionate 50 mcg/actuation spray,suspension 1 spray intranasal DAILY Qty: 9.9 0RF No Action ferrous sulfate 325 mg (65 mg iron) tablet 325 mg PO DAILY fluoxetine 20 mg capsule 20 mg PO DAILY Referrals Follow up/Referrals: Maddie Haq [Primary Care Provider] - See instructions Activity Restrictions/Add. Instructions Additional Instructions/Restrictions: Start antibiotic as soon as possible and be sure to take as ordered for full length of time even though he should start feeling better in 24-48 hours. Tylenol or Motrin as needed for pain or fever Encourage fluids, water, Gatorade, Powerade, Pedialyte if /toddler/child Warm compresses often helps when placed over ear Return immediately for new or worsening symptoms no noticeable improvement in 48-72 hours and in 10-14 days to ensure the ears are return to baseline. Follow-up with primary care Clinical Impressions Clinical Impression: Otitis media Instructions Patient Instructions: Middle Ear Infection Discharge ED Provider: Bhavesh ([facility])Magaly [facility] [place] HPI General Stated complaint: ear pain Mode of Arrival: Ambulatory Source of Information: Significant Other Limitations: No Limitations Time Seen by Provider: 06/12/23 09:44 Description of Symptoms (Recalled from Triage Doc. by RN): PATIENT C/O BILATERAL EAR PAIN X 1 WEEK HEENT Symptoms (Recalled from RN notes): Yes Resp Symptoms (Recalled from RN notes): No Skin Symptoms (Recalled from RN notes): No MS Symptoms (Recalled from RN notes): No Functional Status (Recalled from RN notes): WNL History of Present Illness Provider Complaint: 28 yr old female presents for arabella ear pain, rt worse than left, dizzy at times Related Data Home Medications Medication Instructions Recorded Confirmed ferrous sulfate 325 mg (65 mg 325 mg PO DAILY Supplement 08/05/22 02/04/23 iron) tablet fluoxetine 20 mg capsule 20 mg PO DAILY 02/04/23 02/04/23 Previous Rx's Medication Instructions Recorded cephalexin 500 mg tablet 500 mg PO BID 10 days #20 tabs 06/12/23 fluticasone propionate 50 1 spray intranasal DAILY #9.9 mL 06/12/23 mcg/actuation nasal spray,suspension Allergies Allergy/AdvReac Type Severity Reaction Status Date / Time Penicillins Allergy Unknown -- Verified 02/04/23 10:02 Worker's Comp Is this a Worker's Comp case?: No [facility] Disclaimer: The information contained in this section may have been updated after the patient was seen, as this information can be updated by other users. Surgical History , [employer]) Hx of wisdom tooth extraction Hx of tonsillectomy Family History , [employer]) Cancer Hypertension Social History , [employer]) Smoking Status: Never smoker second hand exposure: No alcohol intake: current substance use type: denies use current occupational status: employed Travel in the last 8 weeks: None household members: spouse housing: house current occupation: [employer] current occupational exposures/hazards: No caffeine: No ROS Obtained: Yes All systems reviewed & no additional complaints except as documented Constitutional Constitutional: Reports system reviewed and no additional complaints, except as documented Eyes Eyes: Reports system reviewed and no additional complaints, except as documented and Reports as per HPI ENT Ears, Nose, Mouth, and Throat: Reports system reviewed and no additional complaints, except as documented, Reports as per HPI, Reports dizziness and Reports otalgia Cardiovascular Cardiovascular: Reports system reviewed and no additional complaints, except as documented Respiratory Respiratory: Reports system reviewed and no additional complaints, except as documented Integumentary/Breasts Skin/Breast: Reports system reviewed and no additional complaints, except as documented Neurologic Neurologic: Reports system reviewed and no additional complaints, except as documented, Reports as per HPI and Reports dizziness Endocrine Endocrine: Reports system reviewed and no additional complaints, except as documented Hematologic/Lymphatic Henatologic/Lymphatic: Reports system reviewed and no additional complaints, except as documented Allergic/Immunologic Allergic/Immunologic: Reports system reviewed and no additional complaints, except as documented Physical Exam General General appearance: alert and in no apparent distress Head Head exam: atraumatic Eye Eye exam: Present normal appearance ENT ENT exam: Present normal oropharynx and mucous membranes moist Expanded ENT Exam TM/Canal exam: Right TM: bulging and loss of landmarks and Bilateral TM: erythema Respiratory Respiratory exam: Present normal lung sounds bilaterally Cardiovascular Cardiovascular exam: Present regular rate and normal rhythm Neurological Exam Neurological exam: Present alert and oriented X3 Skin Skin exam: Present warm and intact Medical Decision Making Medical Records Medical records reviewed: Yes I reviewed the patient's medical records. Guzman Inquiry Pt receiving controlled substance: No Guzman was queried for this patient: No Vital Signs: 06/12/23 09:20 Temperature 97.9 F Temperature Source Oral Pulse Rate [Left Brachial] 90 Respiratory Rate 17 Blood Pressure [Left Arm] 131/85 Blood Pressure Mean [Left Arm] 100 Blood Pressure Source [Left Arm] Automatic Cuff Blood Pressure Position [Left Arm] Sitting 02 Sat by Pulse Oximetry 98 Oxygen Delivery Method Room Air Lab Data Lab results reviewed: Yes I reviewed the patient's lab results.
[2023-06-12 09:48] VITALS: BP 131/85; PULSE 90; RESP 17; TEMP 36.6; O2SAT 98
== END 2023-06-12 09:57 | disposition home or self-care (01) ==
PROVIDERS: Emergency Provider Nurse Practitioner Family; PCP Family Medicine
DX: H66.93 Otitis media, unspecified, bilateral (principal); R42 Dizziness and giddiness
CPT/HCPCS: 99212; 99214; G0463